=== PATIENT | female | born 1950 | race Caucasian/White ===

== ENCOUNTER 2023-04-21 10:26 | Emergency (ER) | payer OTHER, SELFPAY ==
[2023-04-21 10:39] VITALS: BP 153/98
[2023-04-21 11:39] VITALS: BMI 20.6
--- NOTE | 2023-04-21 11:39 | ED.GENMED ---
History of Present Illness
General
Chief Complaint: DVT/Possible Blood Clot
Source: patient
Exam Limitations: none
Time Seen by Provider: 04/21/23 11:26
Travel History
Have you had any contact with someone who has COVID-19?: No
Do you have any symptoms of coronavirus? Fever > 100 degrees, chills, cough, shortness of breath, sore throat, loss of taste or smell, muscle aches, or headache?: No
History of Present Illness
History of Present Illness:
72-year-old female presents with onset of swelling to the right lower leg and pain to the right small toe. No associated chest pain or shortness of breath. She thinks she may have stubbed her toe. But she is concerned she may have a blood clot.
No recent travel or surgery. She is not anticoagulated. No other complaints at this time
Past History
Past History
ED Past Medical History: Negative HTN, Hypercholesterolemia, IDDM or NIDDM
ED Past Surgical History: None
Social History
Tobacco: Non-smoker
Alcohol: None
Drug: None
Personal:
Living: with family
Family History
Family History: CAD
Phy Exam
Physical Exam
Physical Exam:
General: Well-appearing female no distress
HEENT: Normocephalic atraumatic
Extremities: No cyanosis or edema. 2+ dorsalis pedis pulse bilateral feet. Subtle soft tissue swelling noted over the distal lateral right crowell.
Musculoskeletal exam: The ankle on the right side is nontender. The small toes without deformity without swelling or ecchymosis
Skin: Warm no rash
Course
Orders/Labs/Results
Orders:
Orders
04/21/23 11:36
CR Foot - Right Min 3 Views Urgent
Comment:
Reason For Exam: small toe pain
Venous Doppler Lwr Ext Rt [[facility] Venous LOWER Ext RT] Urgent
Comment:
Reason For Exam: swelling
Vital Signs
Initial and Last Documented VS:
Initial Vital Signs
Temp Pulse Resp BP Pulse Ox
98.1 F 102 16 153/98 98
04/21/23 10:39 04/21/23 10:39 04/21/23 10:39 04/21/23 10:39 04/21/23 10:39
Last Documented Vital Signs
Temp Pulse Resp BP Pulse Ox
98.1 F 102 16 153/98 98
04/21/23 10:39 04/21/23 10:39 04/21/23 10:39 04/21/23 10:39 04/21/23 10:39
MDM/Problems Addressed
Differential Diagnosis Includes:
Right leg pain atraumatic in nature. Question possible DVT versus sprain. She thinks may also stubbed her toe. X-ray of the foot pending ultrasound of leg pending
*Critical Care Note
Total Time (30-74mins, 75-104mins- exclusive of procedures): Not Applicable
Update Note
Update Note:
Ultrasound right leg negative for DVT. X-rays also negative for fracture. No evidence of cellulitis or infectious process. Reassured patient suspect possible sprain or strain. Stable for discharge.
ED Attending Note
-
Portions of this chart may have been created with voice recognition software.� Occasional wrong word or��sound alike� substitutions may have occurred due to the inherent limitations of voice recognition software.
Discharge Plan
Departure
Patient Disposition: Home (Routine Discharge)
Date of Disposition: 04/21/23
Time of Disposition: 13:47
Patient with high blood pressure during this ER visit?: No
Discharge Problem:
Foot pain
Prescriptions:
No Action
cholecalciferol (vitamin D3) [Vitamin D3] 1,000 UNIT capsule
1,000 unit PO DAILY AT 0700
Referrals:
Boom Quinonez MD [Family Provider] -
Activity Restrictions/Additional Instructions:
Rest. Elevate for swelling. Use Tylenol if needed for pain. Return if worse otherwise follow-up with family doctor
Interventions
Interventions:
*Risk Screen - Suicide Last Done: 04/21/23 11:38
*General Assessment Last Done: 04/21/23 11:39
*Neglect/Abuse Screening Last Done: 04/21/23 11:38
*ED COVID-19 Vaccine History Last Done: 04/21/23 11:39
ED- Cardiac Assessment Last Done: 04/21/23 11:41
ED- Pulmonary Assessment Last Done: 04/21/23 11:41
ED-Peripheral Vascular Assessment Last Done: 04/21/23 11:41
ED-Skin Assessment Last Done: 04/21/23 11:41
[2023-04-21 14:00] VITALS: BP 142/84
== END 2023-04-21 14:00 | disposition home or self-care (01) ==
LOC: EMR 10:26
PROVIDERS: EMERGENCY PHYSICIAN Emergency Medicine; FAMILY PHYSICIAN Family Medicine
DX: M79.671 Pain in right foot (principal); Z82.49 Family history of ischemic heart disease and other diseases of the circulatory system
CPT/HCPCS: 99284; 73630; 93971

== ENCOUNTER 2024-05-26 13:46 | Emergency (ER) | payer OTHER, SELFPAY ==
[2024-05-26 13:48] VITALS: BP 168/96
--- NOTE | 2024-05-26 15:05 | ED.GENMED ---
History of Present Illness
General
Chief Complaint: Head Injury
Source: patient
Time Seen by Provider: 05/26/24 14:54
History of Present Illness
History of Present Illness:
73-year-old female presents to the emergency room complaining of head injury. Patient states she was struck on the left forehead by a screen door which unexpectedly closed on her. She 'saw stars' when she was struck but did not have loss of
consciousness. She is complaining of pain where the door struck her. She does not have a diffuse headache. No associated nausea or vomiting. No focal weakness numbness or tingling. She applied ice to the area last night and this morning.
Patient was able to go to restorationist today. She drove and was able to do so without difficulty. She went to an urgent care because she was anxious about the head injury and they instructed her to come here to the emergency room for a CAT scan of her
head. Patient does not take any oral anticoagulants.
Past History
Past History
ED Past Medical History: Negative HTN, Hypercholesterolemia, IDDM or NIDDM
ED Past Surgical History: None
Social History
Tobacco: Non-smoker
Alcohol: None
Drug: None
Personal:
Living: with family
Family History
Family History: CAD
Phy Exam
Physical Exam
Physical Exam:
General: Awake, Alert, Oriented X3. No acute distress.
Vitals: unremarkable
Head: Atraumatic
Eyes: Pupils equal, EOMI
Throat: Airway intact, no exudates
Neck: Trachea midline
Lungs: Clear and equal b/l
Heart: Regular rate, no murmurs
Abd: Soft, Nontender, No pulsatile mass
Neuro: Cranial nerves intact, muscle strength equal bilaterally
Skin: Warm, dry, no rash
Extremities: pulses equal b/l, no edema
Course
Orders/Labs/Results
Orders:
Orders
05/26/24 13:51
CT Head W/o Iv Contrast Urgent
Comment:
Reason For Exam: head injury
Vital Signs
Initial and Last Documented VS:
Initial Vital Signs
Temp Pulse Resp BP Pulse Ox
97.4 F 102 17 168/96 99
05/26/24 13:48 05/26/24 13:48 05/26/24 13:48 05/26/24 13:48 05/26/24 13:48
Last Documented Vital Signs
Temp Pulse Resp BP Pulse Ox
97.4 F 80 17 136/80 97
05/26/24 13:48 05/26/24 16:39 05/26/24 13:48 05/26/24 16:39 05/26/24 16:39
MDM/Problems Addressed
Differential Diagnosis Includes:
Contusion, concussion, subdural
MDM/Problems Addressed:
Patient presents with what sounds to be a minor head injury. She was instructed by urgent care to come for a CAT scan. My suspicion for intracranial bleeding is extremely low. I discussed the risks and benefits of radiation exposure etc. with the
patient. Patient states she will be able to sleep if she does not have a CAT scan that shows she does not have bleeding in her brain.
CT shows no acute abnormalities. Patient stable for discharge home.
*Radiology
Radiology exam reviewed: radiology read reviewed
*Pulse Oximetry
Patient hypoxic: no
*Critical Care Note
Total Time (30-74mins, 75-104mins- exclusive of procedures): Not Applicable
ED Attending Note
-
Portions of this chart may have been created with voice recognition software.� Occasional wrong word or��sound alike� substitutions may have occurred due to the inherent limitations of voice recognition software.
Discharge Plan
Departure
Patient Disposition: Home (Routine Discharge)
Date of Disposition: 05/26/24
Time of Disposition: 16:30
Patient with high blood pressure during this ER visit?: Yes
Condition: Good
Discharge Problem:
Head injury, Contusion
Instructions: Head Injury in Adults (DC)
Prescriptions:
No Action
cholecalciferol (vitamin D3) [Vitamin D3] 1,000 UNIT capsule
1,000 unit PO DAILY AT 0700
Referrals:
Rita Conley DO [Family Provider] -
Interventions
Interventions:
*Risk Screen - Suicide Last Done: 05/26/24 13:50
*General Assessment Last Done: 05/26/24 13:50
*Neglect/Abuse Screening Last Done: 05/26/24 13:50
*ED- Fall Risk Assessment Last Done: 05/26/24 15:57
*ED COVID-19 Vaccine History Last Done: 05/26/24 13:50
*Nursing Disposition Last Done: 05/26/24 16:39
ED- Neurological Assessment Last Done: 05/26/24 14:58
ED-Skin Assessment Last Done: 05/26/24 14:58
Discharge Date and Time
Discharge Date/Time: 05/26/24 16:46
Print Language: ARMENIAN
[2024-05-26 16:39] VITALS: BP 136/80
== END 2024-05-26 16:46 | disposition home or self-care (01) ==
LOC: EMR 13:46
PROVIDERS: EMERGENCY PHYSICIAN Emergency Medicine; FAMILY PHYSICIAN Internal Medicine
DX: S09.90XA Unspecified injury of head, initial encounter (principal); W22.8XXA Striking against or struck by other objects, initial encounter
CPT/HCPCS: 99284; 70450

== ENCOUNTER 2025-01-28 16:04 | Emergency (ER) | payer SELFPAY ==
[2025-01-28 16:24] VITALS: BP 163/91
--- NOTE | 2025-01-28 18:00 | ED.GENMED ---
History of Present Illness
General
Chief Complaint: Head Injury
Source: patient
Time Seen by Provider: 01/28/25 17:57
History of Present Illness
History of Present Illness:
74-year-old female presenting to the ER for evaluation following head injury stating she was attempting a out of the car and the car door started to shut and hit her on the top of her head. Since that time she has had a generalized headache and was
concern for possible intracranial bleeding or concussion. She does not take any anticoagulant medication. She did not take anything for her headache prior to arrival. No other injuries or concerns at this time.
Past History
Past History
ED Past Medical History: Negative HTN, Hypercholesterolemia, IDDM or NIDDM
ED Past Surgical History: None
Social History
Tobacco: Non-smoker
Alcohol: None
Drug: None
Personal:
Living: with family
Family History
Family History: CAD
Review of Systems
Review of Systems
All Other Systems: ROS reviewed and negative except as documented in HPI and ROS
Phy Exam
Physical Exam
Physical Exam:
GENERAL: Alert , in no apparent distress
EYE: conjunctiva clear
Head: Normocephalic atraumatic
NECK: Supple,
ENT: mmm.
LUNGS: no acute respiratory distress
NEUROLOGICAL: Alert and oriented, ambulates with steady gait
SKIN: Warm and dry, skin intact.
MUSCULOSKELETAL: well perfused.
PSYCH: Normal and appropriate interaction.
Scores
Heart Failure Risk
Heart Failure Risk Score: Not Applicable
Heart Score for Chest Pain Patients
STEMI patient?: Not applicable
Withdrawal Assessment of Alcohol
Withdrawal Assessment Completed?: Not applicable
Course
Orders/Labs/Results
Orders:
Orders
01/28/25 16:[address] [CT Head W/o Iv Contrast] Urgent
Comment:
Reason For Exam: head injury
Vital Signs
Initial and Last Documented VS:
Initial Vital Signs
Temp Pulse Resp BP Pulse Ox
97.4 F 97 15 163/91 96
01/28/25 16:24 01/28/25 16:24 01/28/25 16:24 01/28/25 16:24 01/28/25 16:24
Last Documented Vital Signs
Temp Pulse Resp BP Pulse Ox
97.4 F 97 15 163/91 96
01/28/25 16:24 01/28/25 16:24 01/28/25 16:24 01/28/25 16:24 01/28/25 18:01
MDM/Problems Addressed
Differential Diagnosis Includes:
Contusion
Concussion
ICH
MDM/Problems Addressed:
74-year-old female presenting to the ER for evaluation following a head injury resulting in generalized headache. Patient is not on any anticoagulants, no LOC and no vomiting. Suspicion for intracranial bleeding is low. Patient significantly
concern for intracranial bleeding so will obtain CT scan of the head although my suspicion for this is quite low. Anticipate discharge home.
*Radiology
Radiology exam reviewed: radiology read reviewed
*Pulse Oximetry
SaO2: 96
Oxygen Mode of Delivery: Room air
Patient hypoxic: no
*Critical Care Note
Total Time (30-74mins, 75-104mins- exclusive of procedures): Not Applicable
Patient Management
Escalation/DeEscalation of care consider admission/obs:
CT scan is negative for any acute intracranial pathology. Patient stable for discharge home and outpatient management with the primary care provider as needed.
ED Attending Note
-
Portions of this chart may have been created with voice recognition software.� Occasional wrong word or��sound alike� substitutions may have occurred due to the inherent limitations of voice recognition software.
Discharge Plan
Departure
Patient Disposition: Home (Routine Discharge)
Date of Disposition: 01/28/25
Time of Disposition: 18:00
Patient with high blood pressure during this ER visit?: Yes
Discharge Problem:
Head injury
Instructions: Head Injury in Adults (DC)
Prescriptions:
No Action
cholecalciferol (vitamin D3) [Vitamin D3] 1,000 UNIT capsule
1,000 unit PO DAILY AT 0700
Referrals:
Rita Conley DO [Family Provider, Internal Medicine]
Interventions
Interventions:
*General Assessment Last Done: 01/28/25 16:24
*Neglect/Abuse Screening Last Done: 01/28/25 16:24
*ED COVID-19 Vaccine History Last Done: 01/28/25 16:24
*ED Influenza Vaccine History Last Done: 01/28/25 16:24
*Risk Screen - Suicide (C-SSRS) Last Done: 01/28/25 16:24
*Nursing Disposition Last Done: 01/28/25 18:06
ED- Neurological Assessment Last Done: 01/28/25 18:03
Discharge Date and Time
Discharge Date/Time: 01/28/25 18:06
Print Language: DANISH
== END 2025-01-28 18:06 | disposition home or self-care (01) ==
LOC: EMR 16:04
PROVIDERS: EMERGENCY PHYSICIAN Emergency Medicine; FAMILY PHYSICIAN Internal Medicine
DX: S09.90XA Unspecified injury of head, initial encounter (principal); W20.8XXA Other cause of strike by thrown, projected or falling object, initial encounter; Y92.810 Car as the place of occurrence of the external cause
CPT/HCPCS: 99284; 70450